=== PATIENT | female | born 1935 | race Caucasian/White ===

== ENCOUNTER 2019-01-30 09:52 | Emergency (ER) | payer MEDICARE, OTHER ==
[~2019-01-30] VITALS: Ht 165.1 cm; Wt 81.8 kg
[~2019-01-30 09:52] MED LIST: APIX5TAB3 PO; CALC-1051 PO; CITA40TA17 PO; DILT240T PO; FESO4TAB PO; MULT400C3 PO; SIMV20TA5 PO
[2019-01-30 10:06] VITALS: BP 131/84
== END 2019-01-30 10:45 | disposition home or self-care (01) ==
LOC: ER 09:53
DX: I10 Essential (primary) hypertension (principal); E78.00 Pure hypercholesterolemia, unspecified; M19.90 Unspecified osteoarthritis, unspecified site; F41.9 Anxiety disorder, unspecified; Z76.0 Encounter for issue of repeat prescription; Z79.01 Long term (current) use of anticoagulants; Z79.899 Other long term (current) drug therapy; Z98.890 Other specified postprocedural states
CPT/HCPCS: 99281

== ENCOUNTER 2019-05-09 17:53 | Inpatient (IN) | payer MEDICARE, OTHER ==
[~2019-05-09] VITALS: Ht 160 cm; Wt 81.8 kg
[2019-05-09 18:24] LABS: BASOPHILS # (AUTO) 0.1 X10'3 (0-0.2); BASOPHILS % (AUTO) 0.4 % (0-1); EOSINOPHILS # (AUTO) 0.2 X10'3 (0-0.9); EOSINOPHILS % (AUTO) 1.5 % (0-6); HEMATOCRIT 36.6 % (35.0-45.0); HEMOGLOBIN 12.5 g/dl (12.0-16.0); LYMPHOCYTES # (AUTO) 1.3 X10'3 (1.1-4.8); LYMPHOCYTES % (AUTO) 10.6 % (21-51); MEAN CORPUSCULAR HEMOGLOBIN 32.8 PG (27.0-31.0); MEAN CORPUSCULAR HGB CONC 34.2 g/dL (33.0-36.5); MEAN CORPUSCULAR VOLUME 95.8 FL (78-98); MEAN PLATELET VOLUME 8.7 FL (7.4-10.4); MONOCYTES # (AUTO) 1.2 X10'3 (0-0.9); MONOCYTES % (AUTO) 9.7 % (2-12); NEUTROPHILS # (AUTO) 9.6 X10'3 (1.8-7.7); NEUTROPHILS % (AUTO) 77.8 % (42-75); PLATELET COUNT 234 X10'3 (140-440); RED BLOOD COUNT 3.82 X10'6 (4.20-5.60); RED CELL DISTRIBUTION WIDTH 13.7 % (11.5-14.5); WHITE BLOOD COUNT 12.3 X10'3 (4.5-11.0)
[2019-05-09 18:34] LABS: ALANINE AMINOTRANSFERASE 28 U/L (12-78); ALBUMIN 3.5 G/DL (3.4-5.0); ALKALINE PHOSPHATASE 86 IU/L (46-116); ANION GAP 6 (8-16); ASPARTATE AMINO TRANSFERASE 25 U/L (10-37); BILIRUBIN,TOTAL 0.6 MG/DL (0.1-1.0); BLOOD UREA NITROGEN 22 MG/DL (7-18); CALCIUM 9.3 MG/DL (8.5-10.1); CHLORIDE 103 MMOL/L (99-107); CREATININE 1.05 MG/DL (0.40-0.90); GLUCOSE 117 MG/DL (70-104); PARTIAL THROMBOPLASTIN TIME 30 SECONDS (22-32); POTASSIUM 3.4 MMOL/L (3.5-5.1); SODIUM 139 MMOL/L (135-145); TOTAL CARBON DIOXIDE 29.8 MMOL/L (24-32); TOTAL PROTEIN 7.1 G/DL (6.4-8.2); eGFR 50 ML/MIN
[2019-05-09] MEDS ORDERED: diltiazem 5mg/ml 5ml inj. IV ONE ×2 (18:35→19:55)
[2019-05-09] MEDS ORDERED: FURO-150 PO (19:31)
[2019-05-09] MEDS ORDERED: METO-411 PO (19:31)
[2019-05-09] MEDS ORDERED: APIX5TAB3 PO (19:33)
[2019-05-09] MEDS ORDERED: potassium CL 10mEq/100ml bag 100 ML IV PRN ×2 (21:10)
[2019-05-09] MEDS ORDERED: magnesium 4gm in 100ml NS 100 ML IV PRN (21:10)
[2019-05-09] MEDS ORDERED: mag hydrox/Alum hydrox/simeth 30ml oral suspension PO PRN (21:10)
[2019-05-09] MEDS ORDERED: magnesium 2GM in 50ml NS 50 ML IV PRN (21:10)
[2019-05-09] MEDS ORDERED: ondansetron/PF 4mg/2ml inj IV PRN (21:10)
[2019-05-09] MEDS ORDERED: morphine 2 MG/ML inj. syringe IV PRN (21:10)
[2019-05-09] MEDS ORDERED: potassium Cl 20 mEq SR tablet PO PRN (21:10)
[2019-05-09] MEDS ORDERED: magnesium hydroxide 30ml (MOM) UD suspension PO PRN (21:10)
[2019-05-09] MEDS ORDERED: acetaminophen 325mg tablet PO PRN ×2 (21:10)
--- NOTE | 2019-05-09 22:26 | NUR ---
upon entering room pt. was crying and stated she was having severe chest and back pain. pt was adjusted in bed, ecg ordered and morphine 1mg and zofran 4 mg given. pt. stated some relief.
[2019-05-09] MEDS ORDERED: metoprolol tartrate 1mg/ml inj IV PRN (22:35)
[2019-05-09] MEDS ORDERED: aminophylline 250mg/10ml inj. IV PRN (22:35)
[2019-05-09] MEDS ORDERED: nitroGLYCERIN 0.4mg SUBLingual tab SL PRN (22:35)
[2019-05-09] MEDS ORDERED: regadenoson 0.4mg/5ml syringe IV PRN (22:35)
--- NOTE | 2019-05-09 23:10 | NUR ---
Received report from information services vice presidentJANET Lugo. Patient to f/u shortly.
--- NOTE | 2019-05-09 23:30 | NUR ---
Patient arrived to floor from ER via gurney. Alert and in no distress at this time. Patient ambulated to bathroom to void using her cane and SBA with gait belt. Patient voided and then into bed. 2 RN skin check completed and VS obtained. Mrsa swab obtained and patient given some water and a yoghurt as had not eaten and will be NPo status as from midnight.
[2019-05-09 23:35] VITALS: BP 125/70
[2019-05-10] VITALS (13 sets, daily range): BP systolic 74–115; BP diastolic 36–58
[2019-05-10] MEDS: potassium Cl 20 mEq SR tablet PO PRN ×4 (00:06→20:29)
--- NOTE | 2019-05-10 00:15 | NUR ---
Blood draw and EKG per [facility] protocol.
--- NOTE | 2019-05-10 00:20 | NUR ---
Md was paged with regard to comments on the EKG. Response was as long as asymptomatic, did not need to see it, but to do another EKG in the AM.
--- NOTE | 2019-05-10 05:39 | NUR ---
Patient stated that she has some pain to mid sternal and to the right of sternum with inspiratory breaths. When helping into bed, patient complained of back pain, but when laying flat in the bed, patient said her pain went completely away. Addendum: 05/10/19 at 0546 by Olinda Triana RN Amended: Links added.
--- NOTE | 2019-05-10 06:50 | NUR ---
Called down to lab as do not see where they have drawn the 4th troponin and AM labs. Kristy in lab stated she will send someone up to draw. Reported this off to Taya GONZALES.
[2019-05-10] MEDS ORDERED: furosemide 40mg tablet PO SCH (08:00)
[2019-05-10] MEDS ORDERED: enoxaparin 80mg/0.8ml syringe SUBCUT SCH (08:00)
[2019-05-10] MEDS: K and/or MAG REPLACEMENT MC SCH (08:00)
[2019-05-10 08:01] LABS: BASOPHILS # (AUTO) 0.1 X10'3 (0-0.2); BASOPHILS % (AUTO) 0.6 % (0-1); EOSINOPHILS # (AUTO) 0.1 X10'3 (0-0.9); EOSINOPHILS % (AUTO) 1.2 % (0-6); HEMATOCRIT 33.9 % (35.0-45.0); HEMOGLOBIN 11.7 g/dl (12.0-16.0); LYMPHOCYTES # (AUTO) 1.6 X10'3 (1.1-4.8); MEAN CORPUSCULAR HEMOGLOBIN 33.4 PG (27.0-31.0); MEAN CORPUSCULAR HGB CONC 34.5 g/dL (33.0-36.5); MEAN CORPUSCULAR VOLUME 96.8 FL (78-98); MONOCYTES # (AUTO) 1.2 X10'3 (0-0.9); MONOCYTES % (AUTO) 12.3 % (2-12); NEUTROPHILS % (AUTO) 69.9 % (42-75); PLATELET COUNT 210 X10'3 (140-440); RED CELL DISTRIBUTION WIDTH 13.8 % (11.5-14.5); WHITE BLOOD COUNT 9.9 X10'3 (4.5-11.0)
[2019-05-10] MEDS: metoprolol succinate 25mg (24-HOUR) SR. Tablet PO SCH (08:27)
[2019-05-10 09:01] LABS: ANION GAP 9 (8-16); BLOOD UREA NITROGEN 18 MG/DL (7-18); BUN/CREATININE RATIO 20.9 (6.6-38.0); CALCIUM 8.8 MG/DL (8.5-10.1); CHLORIDE 104 MMOL/L (99-107); CREATININE 0.86 MG/DL (0.40-0.90); GLUCOSE 98 MG/DL (70-104); MAGNESIUM 1.4 MG/DL (1.5-2.4); POTASSIUM 3.4 MMOL/L (3.5-5.1); SODIUM 142 MMOL/L (135-145); TOTAL CARBON DIOXIDE 28.8 MMOL/L (24-32); eGFR 63 ML/MIN
[2019-05-10] MEDS: multivitamins, therapeutics tablet PO SCH (11:49)
[2019-05-10] MEDS: magnesium Cl slow-release 64mg tablet PO PRN ×2 (11:49→20:29)
[2019-05-10] MEDS: oxybutynin 5mg tablet PO SCH ×2 (11:50→20:29)
[2019-05-10 12:43] LABS: D-DIMER 0.57 MG/L FEU (0-0.50)
[2019-05-10] MEDS ORDERED: iohexol 350MG/ML 100ml bottle IV ONE (13:39)
--- NOTE | 2019-05-10 18:43 | NUR ---
Problems reprioritized. Patient report given, questions answered & plan of care reviewed with Rosalba GONZALES. Pt eating dinner, no distress.
--- NOTE | 2019-05-10 19:02 | NUR ---
Patient in room [facility] 344. I have received report from JANET Bain and had the opportunity to ask questions and assume patient care. Addendum: 05/10/19 at 1903 by Rosalba Parrish RN Amended: Links added.
[2019-05-10] MEDS: apixaban 5mg tablet PO SCH (20:29)
[2019-05-10] MEDS: furosemide 20 MG/2 ML vial IV SCH (20:29)
[2019-05-10] MEDS ORDERED: atorvastatin 10mg tablet PO SCH (21:00)
[2019-05-10] MEDS ORDERED: citalopram 20mg tablet PO SCH (21:00)
[2019-05-11] MEDS ORDERED: Melatonin 3mg tablet PO PRN (01:00)
[2019-05-11 05:02] LABS: BASOPHILS % (AUTO) 0.5 % (0-1); EOSINOPHILS # (AUTO) 0.2 X10'3 (0-0.9); EOSINOPHILS % (AUTO) 2.9 % (0-6); HEMATOCRIT 36.5 % (35.0-45.0); HEMOGLOBIN 12.6 g/dl (12.0-16.0); LYMPHOCYTES # (AUTO) 1.5 X10'3 (1.1-4.8); LYMPHOCYTES % (AUTO) 18.7 % (21-51); MEAN CORPUSCULAR HEMOGLOBIN 33.4 PG (27.0-31.0); MEAN CORPUSCULAR HGB CONC 34.6 g/dL (33.0-36.5); MEAN CORPUSCULAR VOLUME 96.5 FL (78-98); MEAN PLATELET VOLUME 9.2 FL (7.4-10.4); MONOCYTES % (AUTO) 12.1 % (2-12); NEUTROPHILS # (AUTO) 5.2 X10'3 (1.8-7.7); NEUTROPHILS % (AUTO) 65.8 % (42-75); PLATELET COUNT 233 X10'3 (140-440); RED BLOOD COUNT 3.78 X10'6 (4.20-5.60); RED CELL DISTRIBUTION WIDTH 13.5 % (11.5-14.5)
[2019-05-11 06:00] VITALS: BP 124/73
[2019-05-11 06:00] LABS: ALBUMIN 3.3 G/DL (3.4-5.0); ANION GAP 11 (8-16); BLOOD UREA NITROGEN 24 MG/DL (7-18); BUN/CREATININE RATIO 19.4 (6.6-38.0); CALCIUM 8.9 MG/DL (8.5-10.1); CHLORIDE 103 MMOL/L (99-107); CREATININE 1.24 MG/DL (0.40-0.90); GLUCOSE 99 MG/DL (70-104); MAGNESIUM 1.5 MG/DL (1.5-2.4); POTASSIUM 4.2 MMOL/L (3.5-5.1); SODIUM 139 MMOL/L (135-145); TOTAL CARBON DIOXIDE 25.4 MMOL/L (24-32); eGFR 41 ML/MIN
--- NOTE | 2019-05-11 06:00 | NUR ---
Patient in room [facility] 344. I have received report from Yessica GONZALES and had the opportunity to ask questions and assume patient care.
--- NOTE | 2019-05-11 06:12 | NUR ---
Problems reprioritized. Patient report given, questions answered & plan of care reviewed with JANET Valentin. Addendum: 05/11/19 at 0617 by Rosalba Parrish RN Amended: Links added.
[2019-05-11] MEDS: K and/or MAG REPLACEMENT MC SCH (08:00)
[2019-05-11] MEDS: multivitamins, therapeutics tablet PO SCH (08:13)
[2019-05-11] MEDS: oxybutynin 5mg tablet PO SCH (08:13)
[2019-05-11] MEDS: apixaban 5mg tablet PO SCH (08:14)
[2019-05-11] MEDS: metoprolol succinate 25mg (24-HOUR) SR. Tablet PO SCH (08:14)
[2019-05-11] MEDS: furosemide 20 MG/2 ML vial IV SCH (08:15)
[2019-05-11] MEDS ORDERED: FURO-150 PO (09:15)
--- NOTE | 2019-05-11 10:53 | NUR ---
Page Dr. Arizmendi PAGER ID: [phone] MESSAGE: Room 344A Evelina Quinteros: Clarification needed on new Lasix ordered for discharge. Thank you, Mattie ext [phone].
[2019-05-11 11:00] VITALS: BP 104/63
--- NOTE | 2019-05-11 11:50 | NUR ---
Patient stable for discharge per MD orders. All discharge instructions reviewed with patient and all questions answered. New prescriptions e-scripted to patient's preferred pharmacy. PIV & front desk monitor discontinued. Belongings collected and sent with patient. Patient left in private vehicle with family member. Patient wheeled to lobby by hospital volunteer.
== END 2019-05-11 11:50 | disposition home health service (06) | DRG 189 ==
LOC: ER 17:55 → ED HOLD 21:54 → EDBEDREQ 22:40 → SUR 3N 23:33 → OBSVTOIN 05-11 10:15
PROVIDERS: ADMIT Hospitalist; ATTEND Internal Medicine
PROC: B32T1ZZ Computerized Tomography (CT Scan) of Left Pulmonary Artery using Low Osmolar Contrast (ICD-10-PCS; principal; 2019-05-10)
PROC: B3201ZZ Computerized Tomography (CT Scan) of Thoracic Aorta using Low Osmolar Contrast (ICD-10-PCS; 2019-05-10)
PROC: B32S1ZZ Computerized Tomography (CT Scan) of Right Pulmonary Artery using Low Osmolar Contrast (ICD-10-PCS; 2019-05-10)
DX: J96.01 Acute respiratory failure with hypoxia (principal); I50.33 Acute on chronic diastolic (congestive) heart failure; J91.8 Pleural effusion in other conditions classified elsewhere; I11.0 Hypertensive heart disease with heart failure; E78.00 Pure hypercholesterolemia, unspecified; M19.90 Unspecified osteoarthritis, unspecified site; F41.9 Anxiety disorder, unspecified; I48.0 Paroxysmal atrial fibrillation; F32.9 Major depressive disorder, single episode, unspecified; E78.5 Hyperlipidemia, unspecified; Z79.899 Other long term (current) drug therapy; Z79.01 Long term (current) use of anticoagulants
CPT/HCPCS: 36415; 71045; 71275; 78452; 80048; 80053; 80162; 83735; 83880; 84484; 85025; 85379; 85610; 85730; 87081; 93005; 93017; 96374; 96375; 96376; 99285; A9500; G0378; J0280; J1650; J1940; J2270; J2405; J2785; J3490; Q9967

== ENCOUNTER 2019-05-24 17:51 | Inpatient (IN) | payer MEDICARE, OTHER ==
[~2019-05-24] VITALS: Ht 160 cm; Wt 81.0 kg
[~2019-05-24 17:51] MED LIST changes: -DILT240T PO; +FURO-150 PO; +METO-411 PO; +SIMV-42 PO; -SIMV20TA5 PO
[2019-05-24 18:27] LABS: BASOPHILS # (AUTO) 0.1 X10'3 (0-0.2); EOSINOPHILS # (AUTO) 0.3 X10'3 (0-0.9); EOSINOPHILS % (AUTO) 3.1 % (0-6); HEMATOCRIT 35.9 % (35.0-45.0); HEMOGLOBIN 11.9 g/dl (12.0-16.0); LYMPHOCYTES # (AUTO) 1.5 X10'3 (1.1-4.8); MEAN CORPUSCULAR HEMOGLOBIN 32.3 PG (27.0-31.0); MEAN CORPUSCULAR HGB CONC 33.1 g/dL (33.0-36.5); MEAN CORPUSCULAR VOLUME 97.6 FL (78-98); MEAN PLATELET VOLUME 8.7 FL (7.4-10.4); MONOCYTES # (AUTO) 0.8 X10'3 (0-0.9); MONOCYTES % (AUTO) 9.3 % (2-12); NEUTROPHILS % (AUTO) 69.6 % (42-75); PLATELET COUNT 279 X10'3 (140-440); RED BLOOD COUNT 3.68 X10'6 (4.20-5.60); RED CELL DISTRIBUTION WIDTH 13.9 % (11.5-14.5); WHITE BLOOD COUNT 8.6 X10'3 (4.5-11.0)
[2019-05-24 19:09] LABS: ALANINE AMINOTRANSFERASE 26 U/L (12-78); ALBUMIN 3.6 G/DL (3.4-5.0); ALKALINE PHOSPHATASE 94 IU/L (46-116); ANION GAP 11 (8-16); ASPARTATE AMINO TRANSFERASE 28 U/L (10-37); BILIRUBIN,TOTAL 0.6 MG/DL (0.1-1.0); BLOOD UREA NITROGEN 32 MG/DL (7-18); BUN/CREATININE RATIO 29.1 (6.6-38.0); CALCIUM 9.9 MG/DL (8.5-10.1); CHLORIDE 105 MMOL/L (99-107); GLUCOSE 115 MG/DL (70-104); POTASSIUM 3.4 MMOL/L (3.5-5.1); SODIUM 143 MMOL/L (135-145); TOTAL CARBON DIOXIDE 26.6 MMOL/L (24-32); TOTAL PROTEIN 7.3 G/DL (6.4-8.2); eGFR 47 ML/MIN
--- NOTE | 2019-05-24 19:10 | NUR ---
BP CUFF MOVED TO LEFT LOWER ARM. PT STATES, IRRITATING THE SKIN ON UPPER ARM
[2019-05-24 19:16] LABS: MAGNESIUM 1.9 MG/DL (1.5-2.4)
--- NOTE | 2019-05-24 20:01 | NUR ---
UP TO BEDSIDE COMMODE. VOIDED 100CC CLEAR YELLOW URINE. PT SOB ON EXERTION. RR 28,02 SAT90% BACKED TO BED 02 APPLIED AT 2L/MIN NC. SATS 99%.20, LABORED
[2019-05-24] MEDS ORDERED: mag hydrox/Alum hydrox/simeth 30ml oral suspension PO PRN (20:40)
[2019-05-24] MEDS ORDERED: magnesium hydroxide 30ml (MOM) UD suspension PO PRN (20:40)
[2019-05-24] MEDS ORDERED: HYDROcodone/acetaminophen 5mg/325mg tablet PO PRN (20:40)
[2019-05-24] MEDS ORDERED: ondansetron/PF 4mg/2ml inj IV PRN (20:40)
[2019-05-24] MEDS ORDERED: morphine 2 MG/ML inj. syringe IV PRN ×2 (20:40)
[2019-05-24] MEDS ORDERED: acetaminophen 325mg tablet PO PRN (20:40)
[2019-05-24] MEDS ORDERED: FURO-150 PO (20:43)
[2019-05-24 21:00] VITALS: BP 153/91
[2019-05-24] MEDS: furosemide 40mg/4ml inj IV SCH (21:35)
[2019-05-24] MEDS: oxybutynin 5mg tablet PO SCH (21:36)
[2019-05-24] MEDS: CITALOpram 10mg tablet PO SCH (21:36)
--- NOTE | 2019-05-24 22:00 | NUR ---
Patient in room PCU 3023. I have received report from Crow GONZALES and had the opportunity to ask questions and assume patient care.
--- NOTE | 2019-05-24 22:24 | NUR ---
Potassium replacement and sleep medication PAGER ID: [phone] MESSAGE: [phone] Evelina Quinteros: Potassium level 3.4 and needs potassium replacement protocol. Pt states she takes anxiety and sleep medication at home, unknown name, would like to take sleeps medication tonight, would you like to order something?
[2019-05-24] MEDS ORDERED: nitroGLYCERIN 0.4mg/hour patch TD SCH (22:55)
--- NOTE | 2019-05-24 23:09 | NUR ---
Problems reprioritized. Patient report given, questions answered & plan of care reviewed with Melissa GONZALES.
[2019-05-24] MEDS ORDERED: potassium Cl 20 mEq SR tablet PO PRN (23:15)
[2019-05-24] MEDS ORDERED: potassium CL 10mEq/100ml bag 100 ML IV PRN (23:15)
[2019-05-24] MEDS: Melatonin 3mg tablet PO SCH (23:55)
[2019-05-25 00:56] LABS: BASOPHILS # (AUTO) 0.1 X10'3 (0-0.2); BASOPHILS % (AUTO) 0.8 % (0-1); EOSINOPHILS # (AUTO) 0.2 X10'3 (0-0.9); EOSINOPHILS % (AUTO) 2.6 % (0-6); HEMATOCRIT 36.4 % (35.0-45.0); HEMOGLOBIN 12.3 g/dl (12.0-16.0); LYMPHOCYTES # (AUTO) 1.5 X10'3 (1.1-4.8); LYMPHOCYTES % (AUTO) 15.6 % (21-51); MEAN CORPUSCULAR HGB CONC 33.7 g/dL (33.0-36.5); MEAN CORPUSCULAR VOLUME 97.9 FL (78-98); MEAN PLATELET VOLUME 8.8 FL (7.4-10.4); MONOCYTES # (AUTO) 0.8 X10'3 (0-0.9); MONOCYTES % (AUTO) 8.6 % (2-12); NEUTROPHILS # (AUTO) 6.8 X10'3 (1.8-7.7); NEUTROPHILS % (AUTO) 72.4 % (42-75); PLATELET COUNT 271 X10'3 (140-440); RED BLOOD COUNT 3.72 X10'6 (4.20-5.60); WHITE BLOOD COUNT 9.4 X10'3 (4.5-11.0)
[2019-05-25 01:09] LABS: ALBUMIN 3.7 G/DL (3.4-5.0); ANION GAP 10 (8-16); BLOOD UREA NITROGEN 30 MG/DL (7-18); BUN/CREATININE RATIO 28.3 (6.6-38.0); CALCIUM 9.6 MG/DL (8.5-10.1); CHLORIDE 104 MMOL/L (99-107); CREATININE 1.06 MG/DL (0.40-0.90); GLUCOSE 116 MG/DL (70-104); MAGNESIUM 1.6 MG/DL (1.5-2.4); POTASSIUM 3.3 MMOL/L (3.5-5.1); SODIUM 142 MMOL/L (135-145); eGFR 49 ML/MIN
[2019-05-25] MEDS: potassium Cl 20 mEq SR tablet PO PRN ×2 (01:29→05:44)
[2019-05-25 03:00] VITALS: BP 134/81
[2019-05-25 06:00] VITALS: BP 139/105
--- NOTE | 2019-05-25 06:00 | NUR ---
Patient in room PCU 3023. I have received report from Melissa GONZALES and had the opportunity to ask questions and assume patient care.
--- NOTE | 2019-05-25 07:42 | NUR ---
PAGER ID: [phone] MESSAGE: [phone] Evelina Quinteros: Pt is complaining of headache, can we have order for prn tylenol for mild pain. thanks Harish [phone]
[2019-05-25] MEDS: multivitamins, therapeutics tablet PO SCH (07:50)
[2019-05-25] MEDS: oxybutynin 5mg tablet PO SCH ×2 (07:50→20:42)
[2019-05-25] MEDS: calcium carbonate 500mg tablet PO SCH (07:50)
[2019-05-25] MEDS: apixaban 5mg tablet PO SCH ×2 (07:51→20:42)
[2019-05-25] MEDS: atorvastatin 10mg tablet PO SCH (07:51)
[2019-05-25] MEDS: furosemide 40mg/4ml inj IV SCH ×2 (07:51→20:42)
[2019-05-25] MEDS ORDERED: metoprolol succinate 25mg (24-HOUR) SR. Tablet PO SCH ×2 (08:00→10:30)
[2019-05-25] MEDS ORDERED: nitroGLYCERIN 0.4mg/hour patch TD SCH ×2 (10:26→12:13)
[2019-05-25] MEDS ORDERED: metoprolol succinate 25mg (24-HOUR) SR. Tablet PO ONE (10:40)
[2019-05-25] MEDS ORDERED: acetaminophen 325mg tablet PO PRN (10:40)
[2019-05-25 11:00] VITALS: BP 125/76
--- NOTE | 2019-05-25 12:16 | NUR ---
PAGER ID: [phone] MESSAGE: [id number], Nelson Quinteros May I order K replacement protocol? K is 3.3. Patient receives K 20mEq Q48H. Nahum [facility] [id number]
[2019-05-25] MEDS ORDERED: potassium Cl 20 mEq SR tablet PO PRN ×2 (12:35)
[2019-05-25] MEDS: K and/or MAG REPLACEMENT MC SCH (12:35)
[2019-05-25] MEDS ORDERED: potassium CL 10mEq/100ml bag 100 ML IV PRN ×2 (12:35)
[2019-05-25 15:00] VITALS: BP 151/97
[2019-05-25 18:00] VITALS: BP 192/116
--- NOTE | 2019-05-25 18:49 | NUR ---
Problems reprioritized. Patient report given, questions answered & plan of care reviewed with Melissa GONZALES.
[2019-05-25] MEDS: Melatonin 3mg tablet PO SCH (20:41)
[2019-05-25] MEDS: CITALOpram 10mg tablet PO SCH (20:42)
[2019-05-25] MEDS ORDERED: Melatonin 3mg tablet PO SCH (21:00)
[2019-05-25 22:00] VITALS: BP 126/73
[2019-05-26 02:00] VITALS: BP 115/66
--- NOTE | 2019-05-26 04:50 | NUR ---
Patient in room PCU 3023. I have received report from JANET Briceno and had the opportunity to ask questions and assume patient care.
[2019-05-26 05:31] LABS: BASOPHILS # (AUTO) 0.1 X10'3 (0-0.2); BASOPHILS % (AUTO) 0.9 % (0-1); EOSINOPHILS # (AUTO) 0.3 X10'3 (0-0.9); EOSINOPHILS % (AUTO) 4.2 % (0-6); HEMOGLOBIN 11.6 g/dl (12.0-16.0); LYMPHOCYTES # (AUTO) 1.3 X10'3 (1.1-4.8); LYMPHOCYTES % (AUTO) 16.7 % (21-51); MEAN CORPUSCULAR HEMOGLOBIN 33.1 PG (27.0-31.0); MEAN CORPUSCULAR HGB CONC 34.2 g/dL (33.0-36.5); MEAN CORPUSCULAR VOLUME 96.8 FL (78-98); MEAN PLATELET VOLUME 8.7 FL (7.4-10.4); MONOCYTES # (AUTO) 0.9 X10'3 (0-0.9); MONOCYTES % (AUTO) 11.6 % (2-12); NEUTROPHILS % (AUTO) 66.6 % (42-75); PLATELET COUNT 262 X10'3 (140-440); RED BLOOD COUNT 3.51 X10'6 (4.20-5.60); RED CELL DISTRIBUTION WIDTH 13.9 % (11.5-14.5); WHITE BLOOD COUNT 7.5 X10'3 (4.5-11.0)
[2019-05-26 05:46] LABS: ALBUMIN 3.4 G/DL (3.4-5.0); ANION GAP 8 (8-16); BLOOD UREA NITROGEN 28 MG/DL (7-18); BUN/CREATININE RATIO 26.9 (6.6-38.0); CALCIUM 9.5 MG/DL (8.5-10.1); CHLORIDE 102 MMOL/L (99-107); CREATININE 1.04 MG/DL (0.40-0.90); GLUCOSE 105 MG/DL (70-104); MAGNESIUM 1.4 MG/DL (1.5-2.4); POTASSIUM 3.4 MMOL/L (3.5-5.1); SODIUM 143 MMOL/L (135-145); TOTAL CARBON DIOXIDE 32.6 MMOL/L (24-32); eGFR 50 ML/MIN
[2019-05-26 06:00] VITALS: BP 113/54
--- NOTE | 2019-05-26 06:26 | NUR ---
Patient in room PCU 3023. I have received report from Melissa GONZALES and had the opportunity to ask questions and assume patient care.
--- NOTE | 2019-05-26 06:36 | NUR ---
Problems reprioritized. Patient report given, questions answered & plan of care reviewed with JANET Valencia.
[2019-05-26] MEDS ORDERED: metoprolol succinate 25mg (24-HOUR) SR. Tablet PO SCH (08:00)
[2019-05-26] MEDS: K and/or MAG REPLACEMENT MC SCH (08:00)
[2019-05-26] MEDS ORDERED: magnesium Cl slow-release 64mg tablet PO PRN (08:05)
[2019-05-26] MEDS ORDERED: magnesium 2GM in 50ml NS 50 ML IV PRN (08:05)
[2019-05-26] MEDS ORDERED: magnesium 4gm in 100ml NS 100 ML IV PRN (08:05)
[2019-05-26] MEDS: multivitamins, therapeutics tablet PO SCH (08:10)
[2019-05-26] MEDS: calcium carbonate 500mg tablet PO SCH (08:10)
[2019-05-26] MEDS: furosemide 40mg/4ml inj IV SCH (08:10)
[2019-05-26] MEDS: apixaban 5mg tablet PO SCH (08:10)
[2019-05-26] MEDS: oxybutynin 5mg tablet PO SCH (08:10)
[2019-05-26] MEDS: atorvastatin 10mg tablet PO SCH (08:10)
[2019-05-26] MEDS ORDERED: METO50TA7 PO (09:01)
--- NOTE | 2019-05-26 11:30 | NUR ---
Per MD orders, patient stable for discharge home. Discharge instructions and new prescriptions reviewed with patient and all questions/concerns answered to satisfaction. Prescriptions called to pharmacy of preference. Follow up appt. made with Dr. Gaytan on Friday06/01/19 @ 1430, patient provided with appt information. Per Delilah from Dr. Goldsmith's office, they will be in touch with medical records for documents and once records have been reviewed, they will call the patient to set up an appointment. Patient made aware and provided with clinic contact information. PIV discontinued; cannula intact. All belongings sent with patient. Transferred to private vehicle via wheelchair accompanied by friend.
== END 2019-05-26 11:40 | disposition home health service (06) | DRG 291 ==
LOC: ER 17:52 → ED HOLD 20:40 → PCU 3S 21:17
PROVIDERS: ADMIT Internal Medicine; ATTEND Family Medicine
DX: I13.0 Hypertensive heart and chronic kidney disease with heart failure and stage 1 through stage 4 chronic kidney disease, or unspecified chronic kidney disease (principal); I50.33 Acute on chronic diastolic (congestive) heart failure; J96.01 Acute respiratory failure with hypoxia; I48.0 Paroxysmal atrial fibrillation; N18.3 Chronic kidney disease, stage 3 (moderate); F32.9 Major depressive disorder, single episode, unspecified; E78.5 Hyperlipidemia, unspecified; Z96.653 Presence of artificial knee joint, bilateral; F41.9 Anxiety disorder, unspecified; M19.90 Unspecified osteoarthritis, unspecified site; I27.20 Pulmonary hypertension, unspecified; E78.00 Pure hypercholesterolemia, unspecified; E87.6 Hypokalemia; Z90.49 Acquired absence of other specified parts of digestive tract; Z90.710 Acquired absence of both cervix and uterus; Z79.01 Long term (current) use of anticoagulants
CPT/HCPCS: 36415; 71045; 80048; 80053; 83735; 83880; 84484; 85025; 87081; 93005; 99285; G0378; J1940; J3480

== ENCOUNTER 2020-04-01 06:46 | Emergency (ER) | payer BC, MEDICARE, OTHER ==
[~2020-04-01] VITALS: Ht 162.6 cm; Wt 68.2 kg
[2020-04-01] MEDS ORDERED: aspirin 81mg tab.chew PO ONE (06:55)
[2020-04-01] MEDS ORDERED: acetaminophen 325mg tablet PO ONE (06:55)
[2020-04-01 07:24] LABS: BASOPHILS # (AUTO) 0.1 X10'3 (0-0.2); BASOPHILS % (AUTO) 0.8 % (0-1); EOSINOPHILS # (AUTO) 0.3 X10'3 (0-0.9); EOSINOPHILS % (AUTO) 3.1 % (0-6); HEMATOCRIT 35.5 % (35.0-45.0); HEMOGLOBIN 12.1 g/dl (12.0-16.0); LYMPHOCYTES # (AUTO) 1.5 X10'3 (1.1-4.8); LYMPHOCYTES % (AUTO) 15.5 % (21-51); MEAN CORPUSCULAR HEMOGLOBIN 33.2 PG (27.0-31.0); MEAN CORPUSCULAR HGB CONC 34.1 g/dL (33.0-36.5); MEAN CORPUSCULAR VOLUME 97.5 FL (78-98); MONOCYTES % (AUTO) 10.4 % (2-12); NEUTROPHILS # (AUTO) 6.9 X10'3 (1.8-7.7); NEUTROPHILS % (AUTO) 70.2 % (42-75); PLATELET COUNT 294 X10'3 (140-440); RED BLOOD COUNT 3.64 X10'6 (4.20-5.60); RED CELL DISTRIBUTION WIDTH 13.2 % (11.5-14.5); WHITE BLOOD COUNT 9.8 X10'3 (4.5-11.0)
[2020-04-01 07:41] LABS: ALANINE AMINOTRANSFERASE 20 U/L (12-78); ALBUMIN 3.6 G/DL (3.4-5.0); ALKALINE PHOSPHATASE 84 IU/L (46-116); ANION GAP 7 (8-16); ASPARTATE AMINO TRANSFERASE 22 U/L (10-37); BILIRUBIN,TOTAL 0.6 MG/DL (0.1-1.0); BLOOD UREA NITROGEN 26 MG/DL (7-18); BUN/CREATININE RATIO 28.3 (6.6-38.0); CALCIUM 9.3 MG/DL (8.5-10.1); CHLORIDE 102 MMOL/L (99-107); CREATININE 0.92 MG/DL (0.40-0.90); GLUCOSE 121 MG/DL (70-104); MAGNESIUM 1.9 MG/DL (1.5-2.4); POTASSIUM 4.4 MMOL/L (3.5-5.1); SODIUM 139 MMOL/L (135-145); TOTAL CARBON DIOXIDE 30.5 MMOL/L (24-32); TOTAL PROTEIN 7.2 G/DL (6.4-8.2); eGFR 58 ML/MIN
[2020-04-01] MEDS ORDERED: normal saline 1000ml 1,000 ML IV ONE (07:55)
[2020-04-01] MEDS ORDERED: ketorolac trometh. 30mg/ml inj. IV ONE (07:55)
[2020-04-01] MEDS ORDERED: HYDR-3965 PO (08:18)
[2020-04-01] MEDS ORDERED: HYDROcodone/acetaminophen 5mg/325mg tablet PO ONE (08:20)
[2020-04-01 09:23] VITALS: BP 146/65
[2020-04-04] MEDS ORDERED: DIGO125T2 PO (15:44)
[2020-04-04] MEDS ORDERED: TROS20TA4 PO (15:44)
[2020-04-04] MEDS ORDERED: FURO40TA4 PO (15:44)
[2020-04-04] MEDS ORDERED: METO-384 PO (15:44)
[2020-04-04] MEDS ORDERED: LEVO25TA7 PO (15:44)
[2020-04-04] MEDS ORDERED: DABI150C PO (15:55)
== END 2020-04-01 09:25 | disposition home or self-care (01) ==
LOC: ER 06:46
DX: M25.511 Pain in right shoulder (principal); I48.91 Unspecified atrial fibrillation; E78.00 Pure hypercholesterolemia, unspecified; I10 Essential (primary) hypertension; M19.90 Unspecified osteoarthritis, unspecified site; F41.9 Anxiety disorder, unspecified; Z90.49 Acquired absence of other specified parts of digestive tract; Z98.890 Other specified postprocedural states; Z79.01 Long term (current) use of anticoagulants; Z79.899 Other long term (current) drug therapy
CPT/HCPCS: 36415; 71045; 73030; 80053; 83735; 83880; 84484; 85025; 85610; 93005; 96361; 96374; 99285; J1885; J7030

== ENCOUNTER 2020-04-25 06:57 | Day surgery (SDC) | payer BC ==
[2020-04-25] VITALS (7 sets, daily range): BP systolic 123–152; BP diastolic 56–76
[~2020-04-25] VITALS: Ht 157.5 cm; Wt 66.5 kg
[~2020-04-25 06:57] MED LIST changes: -APIX5TAB3 PO; +DIGO125T2 PO; +FERR324T4 PO; -FURO-150 PO; +FURO40TA4 PO; +LEVO25TA7 PO; +METO-384 PO; -METO-411 PO; +PANT40TA54 PO; +TROS20TA4 PO
[2020-04-25] MEDS ORDERED: normal saline 1,000 ML IV SCH (07:30)
[2020-04-25] MEDS ORDERED: diphenhydrAMINE 25mg capsule PO PRN (07:30)
[2020-04-25] MEDS ORDERED: LORazepam 0.5 MG tablet PO PRN (07:30)
[2020-04-25] MEDS ORDERED: FURO-150 PO (07:34)
[2020-04-25] MEDS ORDERED: DABI150C PO (07:34)
[2020-04-25] MEDS ORDERED: fentaNYL/PF 50MCG/1 ML 2ML syringe ONE (09:26)
[2020-04-25] MEDS ORDERED: midazolam 2 mg/2 ml injection ONE (09:26)
[2020-04-25] MEDS ORDERED: iohexol 350MG/ML 100ml bottle IV ONE (09:27)
[2020-04-25] MEDS ORDERED: heparin 1,000unit/ml 10ml vial 10 ML ONE (09:27)
[2020-04-25] MEDS ORDERED: heparin 1,000 UNITS/NS 500ml 500 ML ONE ×2 (09:27)
[2020-04-25] MEDS ORDERED: verapamil 2.5 mg/ml inj IV ONE (09:27)
[2020-04-25] MEDS ORDERED: LIDOcaine 1% (10mg/ml)w/preservative injection 20ml MDV ONE (09:27)
[2020-04-25] MEDS ORDERED: nitroGLYCERIN-Tridil 50MG/D5W 250 ML IV ONE (09:28)
[2020-04-25] MEDS ORDERED: HYDROcodone/acetaminophen 10/325mg tab PO PRN (11:20)
[2020-04-25] MEDS ORDERED: proCHLORperazine 10 MG/2 ml inj IV PRN (11:20)
[2020-04-25] MEDS ORDERED: HYDROcodone/acetaminophen 5mg/325mg tablet PO PRN (11:20)
[2020-04-25] MEDS ORDERED: ondansetron/PF 4mg/2ml inj IV PRN (11:20)
[2020-04-25] MEDS ORDERED: nitroGLYCERIN 0.4mg SUBLingual tab SL PRN (11:20)
[2020-04-25] MEDS ORDERED: OXAZEpam 15mg capsule PO PRN (11:20)
== END 2020-04-25 13:25 | disposition home or self-care (01) ==
LOC: SSTAY O 06:57
PROVIDERS: ATTEND Internal Medicine Interventional Cardiology
DX: I35.0 Nonrheumatic aortic (valve) stenosis (principal); I25.10 Atherosclerotic heart disease of native coronary artery without angina pectoris; I11.0 Hypertensive heart disease with heart failure; I50.32 Chronic diastolic (congestive) heart failure; I48.20 Chronic atrial fibrillation, unspecified; E78.5 Hyperlipidemia, unspecified; Z79.899 Other long term (current) drug therapy; Z79.01 Long term (current) use of anticoagulants
CPT/HCPCS: 93005; 93454; 99152; C1769; C1894; J1644; J2001; J2250; J3010; Q9967; A4620; A5120; J3490

== ENCOUNTER → 2020-04-28 | Outpatient (CLI) | payer BC ==
[~2020-04-28] MED LIST changes: +DABI150C PO; -FERR324T4 PO; -FESO4TAB PO; +FURO-150 PO; -FURO40TA4 PO; -PANT40TA54 PO; +iohexol 350 MG/ML 50ML vial IV ONE; +iohexol 350MG/ML 100ml bottle IV ONE
== END | disposition home or self-care (01) ==
LOC: 64 CT 09:30
PROVIDERS: ATTEND Internal Medicine Cardiovascular Disease
DX: I25.10 Atherosclerotic heart disease of native coronary artery without angina pectoris (principal); I70.0 Atherosclerosis of aorta; I35.0 Nonrheumatic aortic (valve) stenosis; I65.29 Occlusion and stenosis of unspecified carotid artery; M50.322 Other cervical disc degeneration at C5-C6 level
CPT/HCPCS: 71275; 74174; Q9967

== ENCOUNTER 2020-05-04 12:32 | Outpatient (CLI) | payer BC ==
[~2020-05-04 12:32] MED LIST changes: -iohexol 350 MG/ML 50ML vial IV ONE; -iohexol 350MG/ML 100ml bottle IV ONE
[2020-05-04 15:49] VITALS: BP 119/38
== END 2020-05-04 23:59 | disposition home or self-care (01) ==
LOC: TAVR 12:32
PROVIDERS: ATTEND Internal Medicine Cardiovascular Disease
DX: I65.23 Occlusion and stenosis of bilateral carotid arteries (principal); I35.0 Nonrheumatic aortic (valve) stenosis
CPT/HCPCS: 93880

== ENCOUNTER 2020-05-10 11:40 | Outpatient (CLI) | payer BC | END 2020-05-10 23:59 | disposition home or self-care (01) | LOC: RT 11:40 | PROVIDERS: ATTEND Internal Medicine Cardiovascular Disease | DX: R06.02 Shortness of breath (principal); I35.0 Nonrheumatic aortic (valve) stenosis; I65.29 Occlusion and stenosis of unspecified carotid artery | CPT/HCPCS: 94010; 94727; 94729 ==

== ENCOUNTER 2020-05-25 06:46 | Inpatient (IN) | payer BC ==
[2020-05-22 11:42] LABS: CLARITY,URINE SLIGHTLY CLOUDY (Clear); COLOR,URINE YELLOW (Yellow); GLUCOSE, URINE NEGATIVE (Neg); KETONES,URINE NEGATIVE (Neg); LEUKOCYTE ESTERASE ,URINE SMALL (Neg); NITRITES, URINE NEGATIVE (Neg); OCCULT BLOOD,URINE NEGATIVE (Neg); PROTEIN,URINE NEGATIVE (Neg); UA COLLECTION TYPE CLN CATCH MIDSTREAM; UROBILINOGEN,URINE 0.2 E.U/dL (0.2-1.0)
[2020-05-22 11:42] LABS: BASOPHILS # (AUTO) 0.1 X10'3 (0-0.2); BASOPHILS % (AUTO) 1.4 % (0-1); EOSINOPHILS # (AUTO) 0.2 X10'3 (0-0.9); EOSINOPHILS % (AUTO) 3.1 % (0-6); LYMPHOCYTES # (AUTO) 1.4 X10'3 (1.1-4.8); LYMPHOCYTES % (AUTO) 19.1 % (21-51); MEAN CORPUSCULAR HEMOGLOBIN 32.7 PG (27.0-31.0); MEAN CORPUSCULAR HGB CONC 33.4 g/dL (33.0-36.5); MEAN CORPUSCULAR VOLUME 97.9 FL (78-98); MEAN PLATELET VOLUME 8.2 FL (7.4-10.4); MONOCYTES # (AUTO) 0.9 X10'3 (0-0.9); MONOCYTES % (AUTO) 12.5 % (2-12); NEUTROPHILS # (AUTO) 4.7 X10'3 (1.8-7.7); NEUTROPHILS % (AUTO) 63.9 % (42-75); PRE OP HEMATOCRIT 37.7 % (35.0-45.0); PRE OP HEMOGLOBIN 12.6 g/dL (12.0-16.0); PRE OP PLATELET COUNT 278 X10'3 (140-440); RED BLOOD COUNT 3.85 X10'6 (4.20-5.60); RED CELL DISTRIBUTION WIDTH 14.1 % (11.5-14.5)
[2020-05-22 11:51] LABS: MUCUS STRANDS FEW /LPF (Neg); SQUAMOUS EPITHELIAL CELL,UR FEW /LPF (FEW)
[2020-05-22 11:52] LABS: BACTERIA,URINE FEW /HPF (Neg); RBC,URINE 0-2 /HPF (0-2); TRANSITIONAL EPI CELLS,URINE FEW /HPF
[2020-05-22 11:52] LABS: PRE OP PROTIME 10.8 SECONDS (9.0-12.0)
[2020-05-22 12:07] LABS: ALBUMIN 3.9 G/DL (3.4-5.0); ALKALINE PHOSPHATASE 88 IU/L (46-116); BLOOD UREA NITROGEN 20 MG/DL (7-18); BUN/CREATININE RATIO 20.2 (6.6-38.0); CHLORIDE 100 MMOL/L (99-107); CREATININE 0.99 MG/DL (0.40-0.90); PRE OP ALT 25 U/L (30-65); PRE OP ANION GAP 8 (8-16); PRE OP AST 27 U/L (10-37); PRE OP BILIRUB, TOTAL 0.5 MG/DL (0.0-1.0); PRE OP GLUCOSE 125 MG/DL (70-104); PRE OP POTASSIUM 3.8 MMOL/L (3.4-5.1); PRE OP SODIUM 139 MMOL/L (135-145); TOTAL PROTEIN 7.8 G/DL (6.4-8.2); eGFR 53 ML/MIN
[~2020-05-25] VITALS: Ht 157.5 cm; Wt 65.8 kg
[2020-05-25] VITALS (21 sets, daily range): BP systolic 94–182; BP diastolic 34–76
[~2020-05-25 06:46] MED LIST changes: -CALC-1051 PO; -DABI150C PO; +DOCUMENT DATE & TIME OF BETA-BLOCKER PO ONE; -MULT400C3 PO; -TROS20TA4 PO; +VANCOMYCIN INJ 1000 MG in NORMAL SALINE 250ml IV.SOLN IV ONE; +aspirin 325mg tablet PO ONE; +ceFAZolin 2gm in dextrose, iso 50 ML IV ONE; +famotidine 20mg tablet PO ONE; +nitroGLYCERIN-Tridil 50MG/D5W 250 ML IV PRN; +ondansetron/PF 4mg/2ml inj IV PRN; +phenylephrine 50 MG in NS 250ml IVPB IV SCH; +ringers solution, lacted 1,000 ML IV SCH
[2020-05-25] MEDS ORDERED: ringers solution, lacted 1,000 ML IV SCH (08:45)
[2020-05-25] MEDS ORDERED: ondansetron/PF 4mg/2ml inj IV PRN ×2 (08:45→12:45)
[2020-05-25] MEDS ORDERED: meperidine/PF 25mg/ml syringe IV PRN ×3 (08:45)
[2020-05-25] MEDS ORDERED: morphine 4 MG/ML inj SYRINge IV PRN (08:45)
[2020-05-25] MEDS ORDERED: morphine 2 MG/ML inj. syringe IV PRN (08:45)
[2020-05-25] MEDS ORDERED: proCHLORperazine 10 MG/2 ml inj IV PRN (08:45)
[2020-05-25] MEDS ORDERED: nitroGLYCERIN in D5W 50mg/250ml (Tridil) infusion IV ONE (09:56)
[2020-05-25] MEDS ORDERED: iohexol 350 MG/ML 50ML vial IV ONE (09:56)
[2020-05-25] MEDS ORDERED: protamine sulf. 10mg/ml inj. IV ONE (09:56)
[2020-05-25] MEDS ORDERED: iohexol 350MG/ML 100ml bottle IV ONE ×2 (09:56→10:49)
[2020-05-25] MEDS ORDERED: sevoflurane 250ml liquid IH ONE (09:56)
[2020-05-25] MEDS ORDERED: heparin 1,000 UNITS/NS 500ml 500 ML ONE (09:56)
[2020-05-25] MEDS ORDERED: rocuronium 10mg/ml inj IV ONE (09:57)
[2020-05-25] MEDS ORDERED: midazolam 2 mg/2 ml injection ONE (09:57)
[2020-05-25] MEDS ORDERED: fentaNYL/PF 50MCG/1 ML 2ML syringe ONE (09:57)
[2020-05-25] MEDS ORDERED: propofol inj 20 ML IV ONE (09:57)
[2020-05-25] MEDS ORDERED: protamine sulfate 10mg/ml inj. ONE (11:40)
[2020-05-25] MEDS ORDERED: sugammadex 200mg/2ml injection IV ONE (11:53)
--- NOTE | 2020-05-25 12:15 | NUR ---
Received from OR via BED, accompanied by Anesthesiologist DR MOORE- and report given by Anesthesiolgist. PATIENT WAKING UP, DENIES PAIN, V/S STABLE, NEUROVASCULAR CHECKS INTACT, 20G PIV LUE, SCD ON, DRESSING TO RIGHT GROIN CDI WITH NO S/S OF COMPLICATIONS, DRESSING WITH PACER WIRE TO LEFT GROIN WITH NO S/S OF COMPLICATIONS CDI- PACER IS NOT BEING USED AT THE MOMENT. 2;[address] ROJAS AND [address] JUAREZ HAVE BOTH BEEN HERE TO SEE PATIENT AND ARE AWARE OF 2;1 HB. ARTLINE TO LUE.
[2020-05-25] MEDS: normal saline 1000ml 1,000 ML IV SCH (12:45)
[2020-05-25] MEDS ORDERED: traMADol 50MG tablet PO PRN (12:45)
[2020-05-25] MEDS ORDERED: HYDROcodone/acetaminophen 5mg/325mg tablet PO PRN (12:45)
[2020-05-25] MEDS ORDERED: acetaminophen 325mg tablet PO PRN (12:45)
[2020-05-25] MEDS ORDERED: LABETALOL HCL 200mg/40ml (5 MG/ML) inj. IV PRN (12:45)
--- NOTE | 2020-05-25 13:15 | NUR ---
PATIENT A&OX4, DENIES PAIN, V/S STABLE, NEUROVASCULAR CHECKS INTACT, 20G PIV LUE, SCD ON, DRESSING TO RIGHT GROIN CDI WITH NO S/S OF COMPLICATIONS, DRESSING WITH PACER WIRE TO LEFT GROIN WITH NO S/S OF COMPLICATIONS CDI- PACER IS NOT BEING USED AT THE MOMENT. 2;1 HB. ARTLINE TO VANESSA. PATIENT TAKEN TO 312 WITH ALL BELONGINGS AND HOOKED UP TO MONITORS IN ROOM AND REPORT GIVEN TO VONDA RN WHO HAS TAKEN OVER PATIENT CARE.
--- NOTE | 2020-05-25 14:10 | NUR ---
DR. JUAREZ @ BEDSIDE. CLARIFIED TRANSVENOUS PPM ORDER: AWARE AND OK FOR PATIENT HR MID 40s-LOW 50s. Hector JOHNSON AWARE OF PATIENT, KEEP NPO, POSSIBLE PPM INSERTION TONIGHT. IF BP UNSTABLE WITH LOW HR, TURN ON TRANSVENOUS PPM @ 80 BPM.
--- NOTE | 2020-05-25 14:15 | NUR ---
PT oriented to room, call light, and nurses. She is A&O x4. Denies any pain. Groins R&L side are free from any compilations.
--- NOTE | 2020-05-25 14:30 | NUR ---
Received pt from Recovery room. Pt was taken to room 312 and she was oriented to room call light and nursing assessments that are going to frequently due to her Art Line and her venous pacer in L groin. 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 Pt groin sites were without s/s of bleeding, hematoma, or any other complications. Pt tolerated the move to 312 well. Monitoring on post op vs. Bilat feet assessed and pulses palpable bilat. Pt denies anty pain aat this time. After completeing assessment this nurse agrees with nurse in recovery room and nurse prior to surgery will continue frequent monitoring per protocol.
[2020-05-25] MEDS: hydrALAZINE 20mg/ml inj. IV PRN ×2 (15:53→18:49)
[2020-05-25] MEDS: ceFAZolin 2gm in dextrose, iso 50 ML IV SCH (15:53)
[2020-05-25] MEDS ORDERED: ceFAZolin/dextrose, iso. 1 GM/50ml bag IV SCH (16:00)
[2020-05-25] MEDS: vancomycin/NS ADD-VANTAGE 1,000 MG/250 ML BAG IV SCH (20:36)
[2020-05-25] MEDS ORDERED: citalopram 20mg tablet PO SCH (21:00)
[2020-05-25] MEDS ORDERED: atorvastatin 10mg tablet PO SCH (21:00)
[2020-05-26] VITALS: BP 114/43
[2020-05-26] MEDS: ceFAZolin 2gm in dextrose, iso 50 ML IV SCH (01:34)
[2020-05-26 02:00] VITALS: BP 99/35
[2020-05-26] MEDS: normal saline 1000ml 1,000 ML IV SCH (02:05)
[2020-05-26 04:00] VITALS: BP 126/45
[2020-05-26] MEDS ORDERED: levoTHYROXINE 25mcg tablet PO SCH ×2 (07:00→08:00)
[2020-05-26] MEDS ORDERED: ASPI-1265 PO (07:19)
[2020-05-26 07:29] LABS: BASOPHILS # (AUTO) 0.1 X10'3 (0-0.2); BASOPHILS % (AUTO) 0.5 % (0-1); EOSINOPHILS # (AUTO) 0.1 X10'3 (0-0.9); EOSINOPHILS % (AUTO) 0.7 % (0-6); HEMATOCRIT 30.9 % (35.0-45.0); HEMOGLOBIN 10.4 g/dl (12.0-16.0); LYMPHOCYTES # (AUTO) 1.5 X10'3 (1.1-4.8); LYMPHOCYTES % (AUTO) 15.6 % (21-51); MEAN CORPUSCULAR HEMOGLOBIN 32.7 PG (27.0-31.0); MEAN CORPUSCULAR HGB CONC 33.6 g/dL (33.0-36.5); MEAN CORPUSCULAR VOLUME 97.4 FL (78-98); MEAN PLATELET VOLUME 8.2 FL (7.4-10.4); MONOCYTES # (AUTO) 1.4 X10'3 (0-0.9); MONOCYTES % (AUTO) 14.2 % (2-12); NEUTROPHILS # (AUTO) 6.8 X10'3 (1.8-7.7); PLATELET COUNT 194 X10'3 (140-440); RED BLOOD COUNT 3.17 X10'6 (4.20-5.60); RED CELL DISTRIBUTION WIDTH 14.2 % (11.5-14.5); WHITE BLOOD COUNT 9.9 X10'3 (4.5-11.0)
[2020-05-26 07:40] LABS: ALBUMIN 3.1 G/DL (3.4-5.0); ANION GAP 6 (8-16); BLOOD UREA NITROGEN 19 MG/DL (7-18); CALCIUM 8.7 MG/DL (8.5-10.1); CHLORIDE 107 MMOL/L (99-107); CREATININE 1.12 MG/DL (0.40-0.90); GLUCOSE 104 MG/DL (70-104); SODIUM 143 MMOL/L (135-145); TOTAL CARBON DIOXIDE 29.6 MMOL/L (24-32); eGFR 46 ML/MIN
[2020-05-26] MEDS ORDERED: digoxin 125mcg (0.125mg) tablet PO SCH (08:00)
[2020-05-26] MEDS ORDERED: metoprolol succinate 25mg (24-HOUR) SR. Tablet PO SCH (08:00)
[2020-05-26] MEDS ORDERED: furosemide 20MG tablet PO SCH (08:00)
[2020-05-26] MEDS ORDERED: aspirin 81mg tab.chew PO SCH (08:30)
[2020-05-26] MEDS: vancomycin/NS ADD-VANTAGE 1,000 MG/250 ML BAG IV SCH (09:31)
--- NOTE | 2020-05-26 15:15 | NUR ---
Discharge orders received. Pt has remained stable VSS TAVR site has no s/s complications. PIV d/eed anp had no s/s of complications. Art Line D/[place] pt tolerated well, nos/s of complications cath intact, no bleeding noted after pressure on site was released and a dressing with Gauze and Opsite over was placed. All doscharge injstructions given and pt stated understanding to all. Pt was kimberlee=en via wheelchair to private vehicle of a friend and was driven home.
[2020-05-27 06:00] VITALS: BP 118/41
[2020-05-27 11:00] VITALS: BP 105/48
== END 2020-05-26 15:22 | disposition home or self-care (01) | DRG 267 ==
LOC: PAS IN 06:46 → EDSTATUS 09:30 → MED 3N 13:15
PROVIDERS: ADMIT Internal Medicine Cardiovascular Disease; ATTEND Internal Medicine Cardiovascular Disease
PROC: B24BZZ4 Ultrasonography of Heart with Aorta, Transesophageal (ICD-10-PCS; 2020-05-25)
PROC: B41D1ZZ Fluoroscopy of Aorta and Bilateral Lower Extremity Arteries using Low Osmolar Contrast (ICD-10-PCS; 2020-05-25)
PROC: 5A1223Z Performance of Cardiac Pacing, Continuous (ICD-10-PCS; 2020-05-25)
PROC: 02RF38Z Replacement of Aortic Valve with Zooplastic Tissue, Percutaneous Approach (ICD-10-PCS; principal; 2020-05-25 09:56)
DX: I35.0 Nonrheumatic aortic (valve) stenosis (principal); I13.0 Hypertensive heart and chronic kidney disease with heart failure and stage 1 through stage 4 chronic kidney disease, or unspecified chronic kidney disease; E78.5 Hyperlipidemia, unspecified; N18.9 Chronic kidney disease, unspecified; I50.9 Heart failure, unspecified; I25.10 Atherosclerotic heart disease of native coronary artery without angina pectoris; I48.0 Paroxysmal atrial fibrillation; Z79.01 Long term (current) use of anticoagulants
CPT/HCPCS: 33361; 36415; 71046; 80048; 80053; 81001; 82948; 84443; 85025; 85347; 85610; 86870; 86885; 86900; 86901; 86906; 86922; 87081; 87088; 87635; 93005; 93308; 93312; 93325; A4618; A6258; A6449; C1729; C1756; C1760; C1769; C1894; C9399; G0378; J0360; J1644; J2250; J2370; J2704; J2720; J3010; J3370; J3490; J7030; J7040; J7050; J7120; Q9967

== ENCOUNTER 2020-05-29 09:01 | Emergency (ER) | payer BC ==
[~2020-05-29] VITALS: Ht 157.5 cm; Wt 65.9 kg
[~2020-05-29 09:01] MED LIST changes: +ASPI-1265 PO; -DOCUMENT DATE & TIME OF BETA-BLOCKER PO ONE; -VANCOMYCIN INJ 1000 MG in NORMAL SALINE 250ml IV.SOLN IV ONE; -aspirin 325mg tablet PO ONE; -ceFAZolin 2gm in dextrose, iso 50 ML IV ONE; -famotidine 20mg tablet PO ONE; -nitroGLYCERIN-Tridil 50MG/D5W 250 ML IV PRN; -ondansetron/PF 4mg/2ml inj IV PRN; -phenylephrine 50 MG in NS 250ml IVPB IV SCH; -ringers solution, lacted 1,000 ML IV SCH
--- NOTE | 2020-05-29 10:18 | NUR ---
VASCULAR AT BEDSIDE.
--- NOTE | 2020-05-29 10:37 | NUR ---
PT CALLING FOR HER RIDE TO COME PICK HER UP.
[2020-05-29 10:59] VITALS: BP 124/64
[2020-05-29] MEDS ORDERED: FURO-150 PO (19:40)
[2020-05-29] MEDS ORDERED: TROS20TA4 PO (19:40)
[2020-05-29] MEDS ORDERED: METO-384 PO (19:40)
[2020-05-29] MEDS ORDERED: ASPI-1265 PO (19:40)
[2020-05-29] MEDS ORDERED: PANT-47 PO (19:40)
[2020-05-29] MEDS ORDERED: CITA20TA28 PO (19:40)
[2020-05-29] MEDS ORDERED: FERR325T28 PO (19:40)
[2020-05-29] MEDS ORDERED: SIMV-42 PO (19:40)
[2020-05-29] MEDS ORDERED: DIGO125T PO (19:40)
[2020-05-29] MEDS ORDERED: LEVO25TA7 PO (19:40)
== END 2020-05-29 11:04 | disposition home or self-care (01) ==
LOC: ER 09:02
DX: L76.32 Postprocedural hematoma of skin and subcutaneous tissue following other procedure (principal); R10.32 Left lower quadrant pain; I48.91 Unspecified atrial fibrillation; E78.00 Pure hypercholesterolemia, unspecified; I10 Essential (primary) hypertension; M19.90 Unspecified osteoarthritis, unspecified site; F41.9 Anxiety disorder, unspecified; Z98.890 Other specified postprocedural states; Z79.82 Long term (current) use of aspirin; Z79.899 Other long term (current) drug therapy; Y83.8 Other surgical procedures as the cause of abnormal reaction of the patient, or of later complication, without mention of misadventure at the time of the procedure
CPT/HCPCS: 93926; 99284

== ENCOUNTER 2020-06-20 09:22 | Outpatient (CLI) | payer BC ==
[~2020-06-20 09:22] MED LIST changes: +CITA20TA28 PO; -CITA40TA17 PO; +DIGO125T PO; -DIGO125T2 PO; +FERR325T28 PO; +PANT-47 PO; +TROS20TA4 PO
== END 2020-06-20 23:59 | disposition home or self-care (01) ==
LOC: CARD DIAG 09:22
PROVIDERS: ATTEND Internal Medicine Cardiovascular Disease
DX: I08.1 Rheumatic disorders of both mitral and tricuspid valves (principal); Z48.812 Encounter for surgical aftercare following surgery on the circulatory system; Z95.2 Presence of prosthetic heart valve
CPT/HCPCS: 93308

== ENCOUNTER 2020-06-22 11:48 | Outpatient (CLI) | payer BC ==
[2020-06-22 17:50] VITALS: BP 120/38
--- NOTE | 2020-06-22 17:51 | NUR ---
Ms. Quinteros came in today for 1 month follow-up with Dr. Cruz and Dr. Arenas. 5 meter walk 5.94, 6.19, 5.[address] [facility]. Questions answered.
== END 2020-06-22 23:59 | disposition home or self-care (01) ==
LOC: TAVR 11:48
PROVIDERS: ATTEND Internal Medicine Cardiovascular Disease
DX: I35.0 Nonrheumatic aortic (valve) stenosis (principal); I65.29 Occlusion and stenosis of unspecified carotid artery; R06.02 Shortness of breath
CPT/HCPCS: 93005